=== PATIENT | male | born 1940 | race Caucasian/White ===

== ENCOUNTER 2018-10-18 23:03 | Emergency (ER) | payer BC ==
[2018-10-18 23:26] VITALS: BMI 23.8
--- NOTE | 2018-10-19 00:51 | PDOC ---
History of Present Illness - General Chief Complaint: Chest Pain Stated Complaint: CHEST PAIN Time Seen by Provider: 10/19/18 00:51 - History of Present Illness Initial Comments: 10/19/18 00:51 Mr. Jackson is an 78 yo male w/ pmh of parkinson's who presents for evaluation of 1 day history of chest pain. Patient reports his pain has been on the right sided of the chest and feels "like a needle driving in." Pain started when he was sitting watching tv. Nothing improves or worsens pain. Patient describes the pain as intermittent and elected to come in as the pain had lasted for 24 hours. The patient denies shortness of breath, headache and dizziness. Denies fever, chills, nausea, vomit, diarrhea and constipation. Denies dysuria, frequency, urgency and hematuria. Past History - Past Medical History Allergies/Adverse Reactions: Allergies Allergy/AdvReac Type Severity Reaction Status Date / Time No Known Drug Allergies Allergy Verified 10/18/18 23:27 Home Medications: Ambulatory Orders Carbidopa/Levodopa [Sinemet Cr 25-100 Tablet] 1 each PO QID 08/29/13 Anemia: No Asthma: No Cancer: No Cardiac Disorders: No CVA: No COPD: No CHF: No Dementia: No Diabetes: No GI Disorders: No Disorders: No HTN: Yes Hypercholesterolemia: Yes (DENIES) Liver Disease: No Seizures: No Thyroid Disease: No - Surgical History Abdominal Surgery: No Appendectomy: No Cardiac Surgery: No Cholecystectomy: No Lung Surgery: No Neurologic Surgery: No Orthopedic Surgery: Yes (LEFT ARTHROSCOPY; RT SHOULDER SX ARTHROSCOPY 16 YRS AGO ) - Suicide/Smoking/Psychosocial Hx Smoking History: Unknown if ever smoked Have you smoked in the past 12 months: No Information on smoking cessation initiated: No Hx Alcohol Use: No Drug/Substance Use Hx: No Substance Use Type: None Hx Substance Use Treatment: No Review of Systems - Review of Systems Comments:: 10/19/18 00:51 GENERAL/CONSTITUTIONAL: No fever or chills. No weakness. HEAD, EYES, EARS, NOSE AND THROAT: No change in vision. No ear pain or discharge. No sore throat. CARDIOVASCULAR: +Chest pain as described. No shortness of breath RESPIRATORY: No cough, wheezing, or hemoptysis. GASTROINTESTINAL: No nausea, vomiting, diarrhea or constipation. GENITOURINARY: No dysuria, frequency, or change in urination. MUSCULOSKELETAL: No joint or muscle swelling or pain. No neck or back pain. SKIN: No rash NEUROLOGIC: No headache, vertigo, loss of consciousness, or change in strength/ sensation. ENDOCRINE: No increased thirst. No abnormal weight change HEMATOLOGIC/LYMPHATIC: No anemia, easy bleeding, or history of blood clots. ALLERGIC/IMMUNOLOGIC: No hives or skin allergy. *Physical Exam - Vital Signs Last Vital Signs Temp Pulse Resp BP Pulse Ox 98.0 F 68 16 152/87 100 10/18/18 23:24 10/18/18 23:24 10/18/18 23:24 10/18/18 23:24 10/18/18 23:24 - Physical Exam Comments: 10/19/18 00:51 GENERAL: Awake, alert, and fully oriented, in no acute distress HEAD: No signs of trauma, normocephalic, atraumatic EYES: PERRLA, EOMI, sclera anicteric, conjunctiva clear ENT: Auricles normal inspection, hearing grossly normal, nares patent, oropharynx clear without exudates. Moist mucosa NECK: Normal ROM, supple, no lymphadenopathy, JVD, or masses LUNGS: +Reproducible R sided chest pain. No distress, speaks full sentences, clear to auscultation bilaterally HEART: Regular rate and rhythm, normal S1 and S2, no murmurs, rubs or gallops, peripheral pulses normal and equal bilaterally. ABDOMEN: Soft, nontender, normoactive bowel sounds. No guarding, no rebound. No masses EXTREMITIES: Normal inspection, Normal range of motion, no edema. No clubbing or cyanosis. NEUROLOGICAL: +Rolling pill tremor noted to R hand. Cranial nerves II through XII grossly intact. Normal speech, no focal sensorimotor deficits SKIN: Warm, Dry, normal turgor, no rashes or lesions noted. ED Treatment Course - LABORATORY CBC & Chemistry Diagram: 10/19/18 01:17 10/19/18 01:05 Medical Decision Making - Medical Decision Making 10/19/18 01:36 Mr. Jackson is an 78 yo male w/ pmh as described who presents for evaluation of R sided chest pain concerning for ACS vs. pulmonary process vs. MSK pain. Patient will be evaluated with EKG, CXR, cardiac labs. 10/19/18 01:54 Patient signed out to Dr. Carver for further evaluation. *DC/Admit/Observation/Transfer Diagnosis at time of Disposition: Chest pain Qualifiers: Chest pain type: unspecified Qualified Code(s): R07.9 - Chest pain, unspecified - Referrals Referrals: Carlos Romero MD [Primary Care Provider] - - Patient Instructions - Post Discharge Activity
[2018-10-19 01:33] LABS: BASO % 0.9 % (0-2.0); EOS % 2.5 % (0-4.5); HEMATOCRIT 45.3 % (35.4-49); HEMOGLOBIN 14.8 GM/dL (11.7-16.9); LYMPH % 25.9 % (8-40); MCHC 32.7 g/dl (32.0-35.9); MEAN CELL VOLUME 91.9 fl (80-96); MEAN PLT VOLUME 8.4 fl (7.5-11.1); MONO % 7.9 % (3.8-10.2); NEUT % 62.8 % (42.8-82.8); PLATELET COUNT 182 K/MM3 (134-434); RBC 4.93 M/mm3 (4.00-5.60); RDW 13.4 % (11.9-15.9)
[2018-10-19] MEDS ORDERED: ASPIRIN 81 MG CHEWABLE TABLETS PO ONE (01:33)
[2018-10-19] MEDS ORDERED: ASPIRIN 81 MG CHEWABLE TABLETS ONE (01:59)
--- NOTE | 2018-10-19 02:04 | PDOC ---
Documentation entered by Gloria Olmedo SCRIBE, acting as scribe for La Vinson MD. La Vinson MD: This documentation has been prepared by the Shara meraz Xhesika, SCRIBE, under my direction and personally reviewed by me in its entirety. I confirm that the documentation accurately reflects all work, treatment, procedures, and medical decision making performed by me. Attending Attestation - Resident Resident Name: Claude Joyce - ED Attending Attestation I have performed the following: I have examined & evaluated the patient, The case was reviewed & discussed with the resident, I agree w/resident's findings & plan, Exceptions are as noted - HPI HPI: 10/19/18 01:01 The patient is a 78 year old male with a significant past medical history of parkinsons disease who presents to our ED with one day of R sided chest pain. The patient describes the chest pain as intermittent, reproducible pain that feels "like a needle driving in." The patient states the chest pain began when he was sitting watching TV and lasted 24 hours. The patient denies shortness of breath or dizziness. The patient denies fever, chills, nausea, diarrhea or constipation. The patient denies dysuria, frequency, urgency or hematuria. Allergy: NKDA Surgical History: LEFT ARTHROSCOPY; RT SHOULDER SX ARTHROSCOPY 16 YRS AGO Social History: None reported PCP: Carlos Canales 10/19/18 01:33 - Physicial Exam PE: 10/19/18 01:33 slightly disheveled 78 yo male BIBA for chest pain. head ncat neck supple lungs cta b/l cvs [id number] abdomen flat ,nontender no back pain ext no edema skin warm and dry neuro alert,conversant, moving all extremities 10/19/18 01:33 - Medical Decision Making 10/19/18 01:32 plan 2 trops and d/c if negative
[2018-10-19 02:06] LABS: ALBUMIN 3.8 g/dl (3.4-5.0); ALK PHOS 75 U/L (45-117); ANION GAP 5 MMOL/L (8-16); BILIRUBIN,TOTAL 0.5 mg/dL (0.2-1); BLOOD UREA NITROGEN 16 mg/dL (7-18); CALCIUM 8.8 mg/dL (8.5-10.1); CHLORIDE 104 mmol/L (98-107); CO2 27 mmol/L (21-32); CREATININE 0.7 mg/dL (0.55-1.3); GLUCOSE,RANDOM 78 mg/dL (74-106); POTASSIUM 3.9 mmol/L (3.5-5.1); SGOT/AST 17 U/L (15-37); SGPT/ALT 29 U/L (13-61); SODIUM 136 mmol/L (136-145); TOT PROT 7.3 g/dl (6.4-8.2)
--- NOTE | 2018-10-19 06:18 | PDOC ---
*Physical Exam - Vital Signs Last Vital Signs Temp Pulse Resp BP Pulse Ox 98.0 F 57 L 13 148/121 H 100 10/18/18 23:24 10/19/18 03:31 10/19/18 03:31 10/19/18 03:31 10/19/18 03:31 ED Treatment Course - LABORATORY CBC & Chemistry Diagram: 10/19/18 01:17 10/19/18 01:05 - ADDITIONAL ORDERS Additional order review: Laboratory Results 10/19/18 01:05 Sodium 136 Potassium 3.9 Chloride 104 Carbon Dioxide 27 Anion Gap 5 L BUN 16 Creatinine 0.7 Est GFR (CKD-EPI)AfAm 103.30 Est GFR (CKD-EPI)NonAf 89.13 Random Glucose 78 Calcium 8.8 Total Bilirubin 0.5 AST 17 ALT 29 Alkaline Phosphatase 75 Creatine Kinase 76 Troponin I < 0.02 Total Protein 7.3 Albumin 3.8 10/19/18 01:17 RBC 4.93 MCV 91.9 MCHC 32.7 RDW 13.4 D MPV 8.4 Neutrophils % 62.8 Lymphocytes % 25.9 Monocytes % 7.9 Eosinophils % 2.5 Basophils % 0.9 - Medications Given in the ED: ED Medications Discontinued Medications Generic Name Dose Route Start Last Admin Trade Name Freq PRN Reason Stop Dose Admin Aspirin 324 mg 10/19/18 01:33 10/19/18 02:01 Asa - PO 10/19/18 01:34 324 mg ONCE ONE Administration Medical Decision Making - Medical Decision Making 10/19/18 06:15 Pt s/o from day team 78 yo male presents with right sided CP EKG reported NSR without ST changes and CXR shows no acute pathology Pending labs including trop with plan to DC home with PCP f/u if trops are negative 1st trop WNL, labs unremarkable Pt resting well in the ED without complaints 10/19/18 06:35 Second trop negative Pt safe for DC home *DC/Admit/Observation/Transfer Diagnosis at time of Disposition: Chest pain Qualifiers: Chest pain type: unspecified Qualified Code(s): R07.9 - Chest pain, unspecified - Discharge Dispostion Disposition: HOME Condition at time of disposition: Stable Decision to Admit order: No - Referrals Referrals: Carlos Romero MD [Primary Care Provider] - - Patient Instructions Printed Discharge Instructions: DI for Atypical Chest Pain, DI for Chest Pain Additional Instructions: Please follow up with your primary doctor within the next 48 hours and discuss your chest pain and elevated blood pressures. Please continue taking your home dosed medications as prescribed. Return to the ER for new or concerning symptoms including but not limited to: chest pain, difficulty breathing, weakness, new back pain, high fevers. Thank you - Post Discharge Activity
[2018-10-19 06:35] VITALS: BP 152/86; PULSE 56; TEMP 98.3
--- NOTE | 2018-10-19 12:07 | EKG ---
Test Reason : Blood Pressure : / mmHG Vent. Rate : 064 BPM Atrial Rate : 064 BPM P-R Int : 154 ms QRS Dur : 094 ms QT Int : 408 ms P-R-T Axes : 057 -03 042 degrees QTc Int : 420 ms NORMAL SINUS RHYTHM NORMAL ECG WHEN COMPARED WITH ECG OF 21-APR-2011 07:31, NO SIGNIFICANT CHANGE WAS FOUND Confirmed by MD Dykes Daniel ([id number]) on 10/19/2018 12:07:27 PM Referred By: Confirmed By:Neymar Dykes MD
== END 2018-10-19 07:09 | disposition home or self-care (01) ==
LOC: JER 23:03
DX: R07.9 Chest pain, unspecified (principal); E78.00 Pure hypercholesterolemia, unspecified; I10 Essential (primary) hypertension; G20 Parkinson's disease
CPT/HCPCS: 36415; 71045-TC-FY; 80053; 82550; 84484; 85025; 93005; 93010; 99284-25

== ENCOUNTER 2019-07-25 09:58 | Emergency (ER) | payer BC ==
[2019-07-25 10:13] VITALS: BMI 23.3
--- NOTE | 2019-07-25 10:42 | PDOC ---
History of Present Illness - General Chief Complaint: Injury Stated Complaint: FALL Time Seen by Provider: 07/25/19 10:22 - History of Present Illness Initial Comments: 07/25/19 10:44 79m with pmh of Parkinson's, using wheelchair at baseline presents to the ED after 2 second episode of dizziness and fall on his right side as he was trying to sit in his wheelchair. He denies hitting his head or losing consciousness. He states that the same thing happened to him 2 weeks ago where he felt dizzy and almost fell down from his chair. He describes the lightheadedness as a sensation of motion, "see the lights on the ceiling moving" . Did not eat anything this morning. States that his right ribs hurt. Denies fever, chills, chest pain, sob, abdominal pain, dysuria, constipation or diarrhea. Past History - Past Medical History Allergies/Adverse Reactions: Allergies Allergy/AdvReac Type Severity Reaction Status Date / Time No Known Drug Allergies Allergy Verified 07/25/19 10:00 Home Medications: Ambulatory Orders Carbidopa/Levodopa [Sinemet Cr 25-100 Tablet] 1 each PO QID 08/29/13 Aspirin [ASA -] 325 mg PO DAILY 07/25/19 Cholecalciferol (Vitamin D3) [Vitamin D3] 5,000 unit PO DAILY 07/25/19 Gabapentin 300 mg PO QID 07/25/19 Anemia: No Asthma: No Cancer: No Cardiac Disorders: No CVA: No COPD: No CHF: No Dementia: No Diabetes: No GI Disorders: No Disorders: No HTN: Yes Hypercholesterolemia: Yes (DENIES) Liver Disease: No Seizures: No Thyroid Disease: No - Surgical History Abdominal Surgery: No Appendectomy: No Cardiac Surgery: No Cholecystectomy: No Lung Surgery: No Neurologic Surgery: No Orthopedic Surgery: Yes (LEFT ARTHROSCOPY; RT SHOULDER SX ARTHROSCOPY 16 YRS AGO ) - Psycho Social/Smoking Cessation Hx Smoking History: Never smoked Have you smoked in the past 12 months: No Information on smoking cessation initiated: No Hx Alcohol Use: No Drug/Substance Use Hx: No Substance Use Type: None Hx Substance Use Treatment: No Review of Systems - Review of Systems Able to Perform ROS?: Yes Is the patient limited Bulgarian proficient: No Constitutional: No: Symptoms Reported HEENTM: No: Symptoms Reported Respiratory: Yes: Cough Cardiac (ROS): No: Symptoms Reported ABD/GI: No: Symptoms Reported : No: Symptoms Reported Musculoskeletal: Yes: See HPI Integumentary: No: Symptoms Reported Neurological: Yes: See HPI *Physical Exam - Vital Signs Last Vital Signs Temp Pulse Resp BP Pulse Ox 97.4 F L 64 16 170/79 97 07/25/19 10:09 07/25/19 10:09 07/25/19 10:09 07/25/19 10:09 07/25/19 10:09 - Physical Exam General Appearance: Yes: Disheveled. No: Apparent Distress HEENT: positive: EOMI, JOLANTA, Normal ENT Inspection Respiratory/Chest: positive: Normal Breath Sounds, Crackles. negative: Chest Tender, Respiratory Distress Cardiovascular: positive: Regular Rhythm, Regular Rate, S1, S2 Gastrointestinal/Abdominal: positive: Normal Bowel Sounds, Flat, Soft. negative : Tender Musculoskeletal: positive: Normal Inspection. 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 Patient hypoglycemic, treating with PO sugar. Will obtain labs a,d head CT , r/o new mass/stroke. Chest xray for possible pneumo 07/25/19 13:47 All labs wnl, no fracture on cxr, rib xray and head ct, no intracranial bleed either. OK to DC with follow up. Discharge - Discharge Information Problems reviewed: Yes Clinical Impression/Diagnosis: Dizziness, Fall Condition: Fair Disposition: HOME - Admission No - Follow up/Referral Referrals: ON STAFF,NOT [Primary Care Provider] - Carlos Romero MD [Staff Physician] - - Patient Discharge Instructions Patient Printed Discharge Instructions: Vertigo, DI for Hypoglycemia Additional Instructions: Come back to the emergency department for any new, worsening or concerning symptom. Follow up with Dr. Romero within the next 3 days. - Post Discharge Activity
[2019-07-25 11:31] LABS: BASO % 0.3 % (0-2.0); HEMATOCRIT 44.8 % (35.4-49); LYMPH % 15.8 % (8-40); MCHC 33.6 g/dl (32.0-35.9); MEAN CELL VOLUME 92.4 fl (80-96); MEAN PLT VOLUME 8.2 fl (7.5-11.1); MONO % 6.8 % (3.8-10.2); NEUT % 76.1 % (42.8-82.8); PLATELET COUNT 258 K/MM3 (134-434); RBC 4.84 M/mm3 (4.00-5.60); RDW 13.8 % (11.9-15.9); WHITE BLOOD COUNT 6.4 K/mm3 (4.0-10.0)
[2019-07-25 11:43] LABS: ALBUMIN 3.6 g/dl (3.4-5.0); BILIRUBIN,TOTAL 0.6 mg/dL (0.2-1); BLOOD UREA NITROGEN 18.7 mg/dL (7-18); CALCIUM 8.9 mg/dL (8.5-10.1); CREATININE 0.8 mg/dL (0.55-1.3); POTASSIUM 4.2 mmol/L (3.5-5.1); TOT PROT 7.4 g/dl (6.4-8.2)
--- NOTE | 2019-07-25 11:58 | EKG ---
Test Reason : Blood Pressure : / mmHG Vent. Rate : 058 BPM Atrial Rate : 058 BPM P-R Int : 126 ms QRS Dur : 078 ms QT Int : 432 ms P-R-T Axes : 014 -10 021 degrees QTc Int : 424 ms POOR DATA QUALITY, INTERPRETATION MAY BE ADVERSELY AFFECTED SINUS BRADYCARDIA WITH SINUS ARRHYTHMIA JUNCTIONAL ST DEPRESSION, PROBABLY NORMAL BORDERLINE ECG WHEN COMPARED WITH ECG OF 18-OCT-2018 23:03, NO SIGNIFICANT CHANGE WAS FOUND Confirmed by Dick Bennett ([id number]) on 07/25/2019 11:57:32 AM Referred By: Confirmed By:Dick Bennett
--- NOTE | 2019-07-25 12:18 | PDOC ---
Attending Attestation - Resident Resident Name: Leon Leslie - ED Attending Attestation I have performed the following: I have examined & evaluated the patient, The case was reviewed & discussed with the resident, I agree w/resident's findings & plan, Exceptions are as noted - HPI HPI: 79 yo M history Parkinson's, in wheelchair at baseline, presents after episode of dizziness today. He described it as the room spinning as he was attempting to get into his wheelchair. He states he fell and struck the R side of his chest as he fell. Denies SOB, leg swelling, weakness, numbness. Dizziness was self-limited. - Physicial Exam PE: GENERAL: Awake, alert, and fully oriented, in no acute distress HEAD: No signs of trauma EYES: PERRLA, EOMI, sclera anicteric, conjunctiva clear ENT: Auricles normal inspection, hearing grossly normal, nares patent, oropharynx clear without exudates. Moist mucosa NECK: Normal ROM, supple, no lymphadenopathy, JVD, or masses LUNGS: Breath sounds equal, clear to auscultation bilaterally. No wheezes, and no crackles HEART: Regular rate and rhythm, normal S1 and S2, no murmurs, rubs or gallops ABDOMEN: Soft, nontender, normoactive bowel sounds. No guarding, no rebound. No masses EXTREMITIES: Normal range of motion, no edema. No clubbing or cyanosis. No cords, erythema, or tenderness. +Resting tremors to hands B/L. NEUROLOGICAL: Cranial nerves II through XII grossly intact. Normal speech, normal gait. Motor and sensation intact. +Cogwheel rigidity. SKIN: Warm, dry, normal turgor, no rashes or lesions noted. - Medical Decision Making Pt presents s/p fall, struck R chest. Will obtain CXR, Rib XR to r/o fracture, ptx. If all wnl, will DC home.
[2019-07-25 13:15] LABS: PH,URINE 6.5 (5.0-8.0); URINE APPEARANCE CLEAR; URINE BILIRUBIN NEGATIVE (NEGATIVE); URINE COLOR YELLOW; URINE GLUCOSE (UA) NEGATIVE (NEGATIVE); URINE KETONE NEGATIVE (NEGATIVE); URINE LEUK ESTERASE NEGATIVE (NEGATIVE); URINE NITRITE NEGATIVE (NEGATIVE); URINE PROTEIN NEGATIVE (NEGATIVE)
[2019-07-25 14:04] VITALS: BP 141/77; PULSE 59; TEMP 97.5
== END 2019-07-25 14:55 | disposition home or self-care (01) ==
LOC: JER 09:58
DX: R42 Dizziness and giddiness (principal); E16.1 Other hypoglycemia; G20 Parkinson's disease
CPT/HCPCS: 36415; 70450-TC; 71045-TC-FY; 71101-TC-RT-FY; 80053; 81003; 82962; 84484; 85025; 87086; 93005; 93010; 99285-25

== ENCOUNTER 2021-11-29 12:26 | Inpatient (IN) | payer BC, OTHER ==
[2021-11-29] MEDS ORDERED: morphine CARPU-JECT 4 MG/1 ML DISP.SYRIN IVPUSH ONE (13:43)
[2021-11-29 14:02] LABS: BASO % 0.4 % (0-2.0); EOS % 4.5 % (0-4.5); HEMATOCRIT 37.3 % (35.4-49); HEMOGLOBIN 12.4 GM/dL (11.7-16.9); LYMPH % 26.8 % (8-40); MCH 28.8 pg (25.7-33.7); MCHC 33.1 g/dl (32.0-35.9); MEAN PLT VOLUME 7.4 fl (7.5-11.1); MONO % 6.6 % (3.8-10.2); NEUT % 61.7 % (42.8-82.8); PLATELET COUNT 357 10^3/uL (134-434); RBC 4.29 M/mm3 (4.00-5.60); RDW 15.2 % (11.9-15.9); WHITE BLOOD COUNT 7.2 K/mm3 (4.0-10.0)
[2021-11-29] MEDS ORDERED: morphine SULFATE 4 MG/ML VIAL ONE (14:02)
[2021-11-29 14:09] LABS: INR 1.32 (0.83-1.09); PROTHROMBIN TIME (PATIENT) 15.2 SEC (9.7-13.0)
[2021-11-29 14:12] LABS: ACTIVATED PTT 43.5 SECONDS (25.2-36.5)
[2021-11-29 14:28] LABS: ALBUMIN 2.8 g/dl (3.4-5.0); BLOOD UREA NITROGEN 20.1 mg/dL (7-18); CALCIUM 8.4 mg/dL (8.5-10.1)
[2021-11-29 14:30] LABS: CREATININE 0.6 mg/dL (0.55-1.3)
[2021-11-29 14:32] LABS: BILIRUBIN,TOTAL 0.6 mg/dL (0.2-1); TOT PROT 6.1 g/dl (6.4-8.2)
[2021-11-29 16:38] LABS: URINE APPEARANCE CLEAR; URINE BILIRUBIN NEGATIVE (NEGATIVE); URINE COLOR YELLOW; URINE GLUCOSE (UA) NEGATIVE (NEGATIVE); URINE KETONE NEGATIVE (NEGATIVE); URINE LEUK ESTERASE NEGATIVE (NEGATIVE); URINE NITRITE NEGATIVE (NEGATIVE); URINE PROTEIN NEGATIVE (NEGATIVE)
[2021-11-29] MEDS ORDERED: ACETAMINOPHEN INJECTION 100 ML IVPB ONE (21:20)
[2021-11-29] MEDS: ACETAMINOPHEN 1000 MG/100 ML BAG IVPB PRN (21:24)
[2021-11-29] MEDS ORDERED: HEPARIN NA (PORCINE) 5,000 UNITS/ML 1ML VIAL IVPUSH ONE (22:24)
[2021-11-29] MEDS ORDERED: HEPARIN NA (PORCINE) 5,000 UNITS/ML 1ML VIAL IVPUSH PRN (22:24)
[2021-11-29] MEDS ORDERED: MIRTAZAPINE 15 MG TABLET (FP) ONE (22:35)
[2021-11-29] MEDS ORDERED: HEPARIN INFUSION - 25,000 UNITS/500 ML INFUS.BAG IVPB ONE (22:39)
[2021-11-29] MEDS ORDERED: HEPARIN NA (PORCINE) 5,000 UNITS/ML 1ML VIAL ONE (22:39)
[2021-11-29] MEDS: MIRTAZAPINE 15 MG TABLET (FP) PO SCH (22:53)
[2021-11-29] MEDS: HEPARIN INFUSION - 25,000 UNITS/500 ML INFUS.BAG IVPB SCH (22:55)
[2021-11-30] MEDS ORDERED: CARBIDOPA/LEVODOPA 25/250 TABLET (FP) ONE (05:33)
[2021-11-30] MEDS: CARBIDOPA/LEVODOPA 25/250 TABLET (FP) PO SCH ×3 (05:59→22:23)
[2021-11-30 07:41] LABS: BASO % 0.8 % (0-2.0); EOS % 3.7 % (0-4.5); HEMATOCRIT 39.2 % (35.4-49); HEMOGLOBIN 13.1 GM/dL (11.7-16.9); LYMPH % 23.4 % (8-40); MCH 28.9 pg (25.7-33.7); MCHC 33.3 g/dl (32.0-35.9); MEAN CELL VOLUME 86.7 fl (80-96); MEAN PLT VOLUME 7.5 fl (7.5-11.1); MONO % 6.7 % (3.8-10.2); NEUT % 65.4 % (42.8-82.8); PLATELET COUNT 334 10^3/uL (134-434); RBC 4.53 M/mm3 (4.00-5.60); RDW 14.7 % (11.9-15.9); WHITE BLOOD COUNT 5.9 K/mm3 (4.0-10.0)
[2021-11-30 08:08] LABS: INR 1.15 (0.83-1.09); PROTHROMBIN TIME (PATIENT) 13.2 SEC (9.7-13.0)
[2021-11-30 08:10] LABS: BLOOD UREA NITROGEN 14.8 mg/dL (7-18); CALCIUM 8.7 mg/dL (8.5-10.1); CREATININE 0.5 mg/dL (0.55-1.3); MAGNESIUM 2.2 mg/dL (1.8-2.4)
[2021-11-30 08:11] LABS: ACTIVATED PTT 89.8 SECONDS (25.2-36.5)
[2021-11-30] MEDS ORDERED: ACETAMINOPHEN INJECTION 100 ML IVPB ONE (08:39)
[2021-11-30] MEDS: ACETAMINOPHEN 1000 MG/100 ML BAG IVPB PRN (08:47)
[2021-11-30] MEDS ORDERED: amLODIPine BESYLATE 10 MG TABLET (FP) ONE (10:29)
[2021-11-30] MEDS ORDERED: CITALOPRAM HYDROBROMIDE 10 MG TABLET ONE (10:30)
[2021-11-30] MEDS: amLODIPine BESYLATE 10 MG TABLET (FP) PO SCH (12:00)
[2021-11-30] MEDS: CITALOPRAM HYDROBROMIDE 10 MG TABLET PO SCH (12:00)
[2021-11-30] MEDS ORDERED: CARBIDOPA/LEVODOPA 25/100 TABLET (FP) ONE (16:03)
[2021-11-30] MEDS: MIRTAZAPINE 15 MG TABLET (FP) PO SCH (22:22)
[2021-12-01] MEDS: HEPARIN INFUSION - 25,000 UNITS/500 ML INFUS.BAG IVPB SCH ×2 (01:10→08:42)
[2021-12-01] MEDS: HEPARIN NA (PORCINE) 5,000 UNITS/ML 1ML VIAL IVPUSH PRN (02:31)
[2021-12-01] MEDS: ACETAMINOPHEN 325 MG TABLET (FP) PO PRN ×2 (02:40→11:10)
[2021-12-01] MEDS: CARBIDOPA/LEVODOPA 25/250 TABLET (FP) PO SCH ×3 (06:50→21:53)
[2021-12-01] MEDS: CITALOPRAM HYDROBROMIDE 10 MG TABLET PO SCH (09:16)
[2021-12-01] MEDS: amLODIPine BESYLATE 10 MG TABLET (FP) PO SCH (09:16)
[2021-12-01 11:26] LABS: HEMATOCRIT 36.6 % (35.4-49); HEMOGLOBIN 12.3 GM/dL (11.7-16.9); MCH 29.1 pg (25.7-33.7); MCHC 33.6 g/dl (32.0-35.9); MEAN CELL VOLUME 86.5 fl (80-96); MEAN PLT VOLUME 7.6 fl (7.5-11.1); PLATELET COUNT 351 10^3/uL (134-434); RBC 4.23 M/mm3 (4.00-5.60); RDW 14.8 % (11.9-15.9); WHITE BLOOD COUNT 7.3 K/mm3 (4.0-10.0)
[2021-12-01] MEDS: D5-1/2NS+20 MEQ KCL - 20 MEQ/1,000 ML INFUS.BAG IV SCH (12:18)
[2021-12-01] MEDS: MIRTAZAPINE 15 MG TABLET (FP) PO SCH (21:53)
[2021-12-02] MEDS: CARBIDOPA/LEVODOPA 25/250 TABLET (FP) PO SCH ×3 (06:28→21:02)
[2021-12-02] MEDS: amLODIPine BESYLATE 10 MG TABLET (FP) PO SCH (09:51)
[2021-12-02] MEDS: CITALOPRAM HYDROBROMIDE 10 MG TABLET PO SCH (09:51)
[2021-12-02 12:06] LABS: HEMATOCRIT 35.5 % (35.4-49); HEMOGLOBIN 11.9 GM/dL (11.7-16.9); MCHC 33.5 g/dl (32.0-35.9); MEAN CELL VOLUME 86.6 fl (80-96); MEAN PLT VOLUME 7.8 fl (7.5-11.1); PLATELET COUNT 312 10^3/uL (134-434); RDW 15.1 % (11.9-15.9); WHITE BLOOD COUNT 5.6 K/mm3 (4.0-10.0)
[2021-12-02 12:29] LABS: CALCIUM 8.6 mg/dL (8.5-10.1)
[2021-12-02 12:30] LABS: ALBUMIN 2.7 g/dl (3.4-5.0); BLOOD UREA NITROGEN 11.8 mg/dL (7-18)
[2021-12-02 12:33] LABS: CREATININE 0.5 mg/dL (0.55-1.3)
[2021-12-02 12:34] LABS: BILIRUBIN,TOTAL 0.8 mg/dL (0.2-1)
[2021-12-02 12:35] LABS: TOT PROT 5.9 g/dl (6.4-8.2)
[2021-12-02] MEDS: D5-1/2NS+20 MEQ KCL - 20 MEQ/1,000 ML INFUS.BAG IV SCH (13:53)
[2021-12-02] MEDS: HEPARIN INFUSION - 25,000 UNITS/500 ML INFUS.BAG IVPB SCH (14:50)
[2021-12-02] MEDS ORDERED: amLODIPine BESYLATE 5 MG TABLET (FP) PO SCH (17:54)
[2021-12-02] MEDS: ACETAMINOPHEN 325 MG TABLET (FP) PO PRN (21:01)
[2021-12-02] MEDS: MIRTAZAPINE 15 MG TABLET (FP) PO SCH (21:02)
[2021-12-03] MEDS: HEPARIN INFUSION - 25,000 UNITS/500 ML INFUS.BAG IVPB SCH
[2021-12-03] MEDS: CARBIDOPA/LEVODOPA 25/250 TABLET (FP) PO SCH ×3 (06:31→21:55)
[2021-12-03] MEDS ORDERED: INSULIN (NOVOLOG) ASPART 100 UNITS/ML 10ML VIAL ONE (08:05)
[2021-12-03] MEDS: CITALOPRAM HYDROBROMIDE 10 MG TABLET PO SCH (10:11)
[2021-12-03 10:37] LABS: HEMATOCRIT 34.5 % (35.4-49); HEMOGLOBIN 11.6 GM/dL (11.7-16.9); MCHC 33.7 g/dl (32.0-35.9); MEAN CELL VOLUME 86.2 fl (80-96); MEAN PLT VOLUME 7.7 fl (7.5-11.1); PLATELET COUNT 285 10^3/uL (134-434); RDW 14.8 % (11.9-15.9); WHITE BLOOD COUNT 5.9 K/mm3 (4.0-10.0)
[2021-12-03 10:48] LABS: INR 1.13 (0.83-1.09)
[2021-12-03 11:08] LABS: CALCIUM 8.1 mg/dL (8.5-10.1)
[2021-12-03 11:09] LABS: ALBUMIN 2.5 g/dl (3.4-5.0)
[2021-12-03 11:12] LABS: CREATININE 0.5 mg/dL (0.55-1.3)
[2021-12-03 11:13] LABS: BILIRUBIN,TOTAL 0.8 mg/dL (0.2-1); TOT PROT 5.5 g/dl (6.4-8.2)
[2021-12-03] MEDS: HEPARIN NA (PORCINE) 5,000 UNITS/ML 1ML VIAL IVPUSH PRN (11:19)
[2021-12-03] MEDS ORDERED: ASCORBIC ACID 250 MG TABLET (FP) PO SCH (13:00)
[2021-12-03] MEDS ORDERED: MULTIVITAMINS (DAILY MVI) TABLET (FP) PO SCH (13:00)
[2021-12-03] MEDS: MIRTAZAPINE 15 MG TABLET (FP) PO SCH (21:55)
[2021-12-03] MEDS ORDERED: hydrALAZINE HCL 10 MG TABLET PO SCH (22:00)
[2021-12-04] MEDS: CARBIDOPA/LEVODOPA 25/250 TABLET (FP) PO SCH ×3 (06:22→21:56)
[2021-12-04] MEDS ORDERED: ceFAZolin SODIUM 1 GM VIAL ONE ×3 (07:27→18:32)
[2021-12-04] MEDS ORDERED: LIDOCAINE HCL 1%, 10 MG/ML (20ML VIAL) ONE (07:27)
[2021-12-04] MEDS ORDERED: HEPARIN NA (PORCINE) 5,000 UNITS/ML 1ML VIAL ONE (07:27)
[2021-12-04] MEDS ORDERED: MIDAZOLAM HCL 2 MG/2 ML SINGLE DOSE VIAL ONE ×2 (07:29→13:27)
[2021-12-04] MEDS ORDERED: ceFAZolin SODIUM 1 GM VIAL IVPB ONE ×2 (08:15→13:30)
[2021-12-04] MEDS ORDERED: LIDOCAINE HCL 1%, 10 MG/ML (20ML VIAL) INF ONE (08:20)
[2021-12-04] MEDS ORDERED: PROMETHAZINE HCL 25 MG/1 ML VIAL IVPUSH PRN ×2 (08:49→15:28)
[2021-12-04] MEDS ORDERED: ONDANSETRON 4 MG/2 ML VIAL IVPUSH PRN ×2 (08:49→15:28)
[2021-12-04] MEDS ORDERED: LACTATED RINGERS SOLUTION 1,000 ML IV SCH ×2 (09:00→15:30)
[2021-12-04] MEDS: CITALOPRAM HYDROBROMIDE 10 MG TABLET PO SCH (09:44)
[2021-12-04] MEDS: ASCORBIC ACID 250 MG TABLET (FP) PO SCH (09:44)
[2021-12-04] MEDS: MULTIVITAMINS (DAILY MVI) TABLET (FP) PO SCH (09:44)
[2021-12-04] MEDS: hydrALAZINE HCL 10 MG TABLET PO SCH ×2 (09:46→21:54)
[2021-12-04 13:08] LABS: INR 1.02 (0.83-1.09); PROTHROMBIN TIME (PATIENT) 11.7 SEC (9.7-13.0)
[2021-12-04 13:11] LABS: ACTIVATED PTT 32.6 SECONDS (25.2-36.5)
[2021-12-04] MEDS ORDERED: BUPIVACAINE HCL/PF 0.75% 10 ML VIAL ONE ×2 (13:23)
[2021-12-04] MEDS ORDERED: ePHEDrine SULFATE 50 MG/1 ML AMPULE ONE (14:18)
[2021-12-04] MEDS ORDERED: VANCOMYCIN 1,000 MG VIAL (RESTRICTED TO ID ONLY) ONE (14:39)
[2021-12-04] MEDS ORDERED: HYDROmorphone HCL CARPU-JECT 2 MG/1 ML DISP.SYRIN IVPUSH PRN ×2 (15:28)
[2021-12-04] MEDS ORDERED: FENTANYL CITRATE/PF 50 MCG/ML VIAL ONE ×2 (15:59→16:25)
[2021-12-04] MEDS ORDERED: HYDROmorphone HCl 2 MG/ML VIAL ONE (16:24)
[2021-12-04] MEDS ORDERED: DEXTROSE 5%-WATER - 50 ML IVPB ONE (18:32)
[2021-12-04] MEDS: CEFAZOLIN 1 GM in DEXTROSE 5%-WATER - 50 ML IVPB SCH (18:34)
[2021-12-04] MEDS: MIRTAZAPINE 15 MG TABLET (FP) PO SCH (21:54)
[2021-12-04] MEDS: LACTATED RINGERS SOLUTION 1,000 ML IV SCH (21:55)
[2021-12-04] MEDS: oxyCODONE HCL 5 MG TABLET PO PRN (21:59)
[2021-12-05] MEDS ORDERED: ceFAZolin SODIUM 1 GM VIAL ONE ×2 (01:59→09:26)
[2021-12-05] MEDS ORDERED: DEXTROSE 5%-WATER - 50 ML IVPB ONE ×2 (01:59→09:27)
[2021-12-05] MEDS: CEFAZOLIN 1 GM in DEXTROSE 5%-WATER - 50 ML IVPB SCH ×2 (02:03→09:29)
[2021-12-05] MEDS: oxyCODONE HCL 5 MG TABLET PO PRN ×4 (05:39→21:56)
[2021-12-05] MEDS: CARBIDOPA/LEVODOPA 25/250 TABLET (FP) PO SCH ×3 (05:40→21:56)
[2021-12-05] MEDS: LACTATED RINGERS SOLUTION 1,000 ML IV SCH ×2 (05:41→21:55)
[2021-12-05] MEDS: CITALOPRAM HYDROBROMIDE 10 MG TABLET PO SCH (09:29)
[2021-12-05] MEDS: MULTIVITAMINS (DAILY MVI) TABLET (FP) PO SCH (09:29)
[2021-12-05] MEDS: hydrALAZINE HCL 10 MG TABLET PO SCH ×2 (09:29→21:56)
[2021-12-05 09:55] LABS: HEMOGLOBIN 10.1 GM/dL (11.7-16.9); MCH 29.1 pg (25.7-33.7); MCHC 33.7 g/dl (32.0-35.9); MEAN CELL VOLUME 86.3 fl (80-96); MEAN PLT VOLUME 8.2 fl (7.5-11.1); PLATELET COUNT 331 10^3/uL (134-434); RBC 3.47 M/mm3 (4.00-5.60); RDW 15.1 % (11.9-15.9); WHITE BLOOD COUNT 5.8 K/mm3 (4.0-10.0)
[2021-12-05] MEDS: ACETAMINOPHEN 325 MG TABLET (FP) PO PRN (10:18)
[2021-12-05] MEDS: ASCORBIC ACID 250 MG TABLET (FP) PO SCH (12:17)
[2021-12-05] MEDS: MIRTAZAPINE 15 MG TABLET (FP) PO SCH (21:56)
[2021-12-06] MEDS: CARBIDOPA/LEVODOPA 25/250 TABLET (FP) PO SCH ×3 (05:10→21:26)
[2021-12-06] MEDS: oxyCODONE HCL 5 MG TABLET PO PRN ×3 (05:10→21:21)
[2021-12-06] MEDS: ASCORBIC ACID 250 MG TABLET (FP) PO SCH (10:14)
[2021-12-06] MEDS: MULTIVITAMINS (DAILY MVI) TABLET (FP) PO SCH (10:14)
[2021-12-06] MEDS: CITALOPRAM HYDROBROMIDE 10 MG TABLET PO SCH (10:14)
[2021-12-06] MEDS: hydrALAZINE HCL 10 MG TABLET PO SCH ×2 (10:14→21:21)
[2021-12-06] MEDS: ACETAMINOPHEN 325 MG TABLET (FP) PO PRN (10:21)
[2021-12-06] MEDS: MIRTAZAPINE 15 MG TABLET (FP) PO SCH (21:22)
[2021-12-07] MEDS: CARBIDOPA/LEVODOPA 25/250 TABLET (FP) PO SCH ×3 (06:12→21:17)
[2021-12-07] MEDS: ACETAMINOPHEN 325 MG TABLET (FP) PO PRN (06:12)
[2021-12-07] MEDS: hydrALAZINE HCL 10 MG TABLET PO SCH ×2 (10:05→21:17)
[2021-12-07] MEDS: MULTIVITAMINS (DAILY MVI) TABLET (FP) PO SCH (10:05)
[2021-12-07] MEDS: CITALOPRAM HYDROBROMIDE 10 MG TABLET PO SCH (10:05)
[2021-12-07] MEDS: oxyCODONE HCL 5 MG TABLET PO PRN ×2 (10:06→15:04)
[2021-12-07] MEDS: ASCORBIC ACID 250 MG TABLET (FP) PO SCH (10:06)
[2021-12-07] MEDS: ENOXAPARIN NA (PORCINE) 40 MG/0.4 ML DISP.SYRIN SQ SCH (10:47)
[2021-12-07 12:03] LABS: HEMATOCRIT 25.3 % (35.4-49); HEMOGLOBIN 8.4 GM/dL (11.7-16.9); MCH 28.9 pg (25.7-33.7); MCHC 33.2 g/dl (32.0-35.9); MEAN CELL VOLUME 87.2 fl (80-96); MEAN PLT VOLUME 7.3 fl (7.5-11.1); PLATELET COUNT 320 10^3/uL (134-434); RDW 15.5 % (11.9-15.9); WHITE BLOOD COUNT 7.6 K/mm3 (4.0-10.0)
[2021-12-07 15:21] VITALS: BMI 22.8
[2021-12-07] MEDS: MIRTAZAPINE 15 MG TABLET (FP) PO SCH (21:03)
[2021-12-08] MEDS ORDERED: oxyCODONE HCL 5 MG TABLET PO PRN (04:34)
[2021-12-08] MEDS: CARBIDOPA/LEVODOPA 25/250 TABLET (FP) PO SCH ×3 (05:20→21:10)
[2021-12-08] MEDS: ZINC SULFATE 220 MG CAPSULE (FP) PO SCH (09:05)
[2021-12-08] MEDS: CITALOPRAM HYDROBROMIDE 10 MG TABLET PO SCH (09:05)
[2021-12-08] MEDS: ENOXAPARIN NA (PORCINE) 40 MG/0.4 ML DISP.SYRIN SQ SCH (09:05)
[2021-12-08] MEDS: hydrALAZINE HCL 10 MG TABLET PO SCH ×2 (09:05→21:09)
[2021-12-08] MEDS: AMINO ACIDS/PROTEIN HYDROLYS 30 ML LIQUID.PKT PO SCH (09:05)
[2021-12-08] MEDS: MULTIVITAMINS (DAILY MVI) TABLET (FP) PO SCH (09:05)
[2021-12-08] MEDS: ASCORBIC ACID 250 MG TABLET (FP) PO SCH (09:06)
[2021-12-08] MEDS: MIRTAZAPINE 15 MG TABLET (FP) PO SCH (21:08)
[2021-12-08] MEDS: oxyCODONE HCL 5 MG TABLET PO PRN (21:09)
[2021-12-09] MEDS: CARBIDOPA/LEVODOPA 25/250 TABLET (FP) PO SCH ×3 (05:52→21:07)
[2021-12-09] MEDS ORDERED: IRON SUCROSE INJECTION 300 MG in SODIUM CHLORIDE 235 ML IVPB ONE (08:24)
[2021-12-09] MEDS: AMINO ACIDS/PROTEIN HYDROLYS 30 ML LIQUID.PKT PO SCH (09:14)
[2021-12-09] MEDS: ENOXAPARIN NA (PORCINE) 40 MG/0.4 ML DISP.SYRIN SQ SCH (09:30)
[2021-12-09] MEDS: ZINC SULFATE 220 MG CAPSULE (FP) PO SCH (09:31)
[2021-12-09] MEDS: CITALOPRAM HYDROBROMIDE 10 MG TABLET PO SCH (09:31)
[2021-12-09] MEDS: hydrALAZINE HCL 10 MG TABLET PO SCH ×2 (09:31→21:07)
[2021-12-09] MEDS: MULTIVITAMINS (DAILY MVI) TABLET (FP) PO SCH (09:31)
[2021-12-09] MEDS: ASCORBIC ACID 250 MG TABLET (FP) PO SCH (09:37)
[2021-12-09 12:55] LABS: BASO % 0.5 % (0-2.0); HEMATOCRIT 24.5 % (35.4-49); HEMOGLOBIN 8.2 GM/dL (11.7-16.9); LYMPH % 16.6 % (8-40); MCH 29.4 pg (25.7-33.7); MCHC 33.5 g/dl (32.0-35.9); MEAN CELL VOLUME 87.8 fl (80-96); MEAN PLT VOLUME 7.8 fl (7.5-11.1); NEUT % 69.9 % (42.8-82.8); PLATELET COUNT 344 10^3/uL (134-434); RBC 2.79 M/mm3 (4.00-5.60); RDW 15.2 % (11.9-15.9); WHITE BLOOD COUNT 6.3 K/mm3 (4.0-10.0)
[2021-12-09 13:12] LABS: CALCIUM 7.8 mg/dL (8.5-10.1)
[2021-12-09 13:13] LABS: ALBUMIN 2.3 g/dl (3.4-5.0); BLOOD UREA NITROGEN 18.6 mg/dL (7-18)
[2021-12-09 13:17] LABS: CREATININE 0.5 mg/dL (0.55-1.3)
[2021-12-09 13:18] LABS: BILIRUBIN,TOTAL 0.6 mg/dL (0.2-1); TOT PROT 5.3 g/dl (6.4-8.2)
[2021-12-09] MEDS: MIRTAZAPINE 15 MG TABLET (FP) PO SCH (21:07)
[2021-12-09] MEDS: oxyCODONE HCL 5 MG TABLET PO PRN (21:31)
[2021-12-10 04:45] VITALS: BP 108/62; PULSE 60; TEMP 98
[2021-12-10] MEDS: CARBIDOPA/LEVODOPA 25/250 TABLET (FP) PO SCH ×2 (05:59→14:33)
[2021-12-10] MEDS: MULTIVITAMINS (DAILY MVI) TABLET (FP) PO SCH (09:20)
[2021-12-10] MEDS: ZINC SULFATE 220 MG CAPSULE (FP) PO SCH (09:20)
[2021-12-10] MEDS: hydrALAZINE HCL 10 MG TABLET PO SCH (09:20)
[2021-12-10] MEDS: AMINO ACIDS/PROTEIN HYDROLYS 30 ML LIQUID.PKT PO SCH (09:20)
[2021-12-10] MEDS: ENOXAPARIN NA (PORCINE) 40 MG/0.4 ML DISP.SYRIN SQ SCH (09:20)
[2021-12-10] MEDS: CITALOPRAM HYDROBROMIDE 10 MG TABLET PO SCH (09:20)
[2021-12-10] MEDS: ASCORBIC ACID 250 MG TABLET (FP) PO SCH (09:21)
[2021-12-10] MEDS ORDERED: FERROUS SO4 325 MG TABLET (FP) PO SCH (10:00)
[2021-12-10] MEDS: oxyCODONE HCL 5 MG TABLET PO PRN (10:22)
== END 2021-12-10 16:18 | DRG 522 ==
LOC: JER 12:26 → JERBED 15:21 → J6S 11-30 18:39
PROVIDERS: ADMIT Hospitalist; ATTEND Family Medicine
PROC: 06H03DZ Insertion of Intraluminal Device into Inferior Vena Cava, Percutaneous Approach (ICD-10-PCS; 2021-12-04)
PROC: B50CYZZ Plain Radiography of Left Lower Extremity Veins using Other Contrast (ICD-10-PCS; 2021-12-04)
PROC: 0SRS0J9 Replacement of Left Hip Joint, Femoral Surface with Synthetic Substitute, Cemented, Open Approach (ICD-10-PCS; principal; 2021-12-04 07:45)
DX: S72.142A Displaced intertrochanteric fracture of left femur, initial encounter for closed fracture (principal); I82.432 Acute embolism and thrombosis of left popliteal vein; G20 Parkinson's disease; I10 Essential (primary) hypertension; E86.0 Dehydration; E78.5 Hyperlipidemia, unspecified; J44.9 Chronic obstructive pulmonary disease, unspecified; F32.A Depression, unspecified; F03.90 Unspecified dementia, unspecified severity, without behavioral disturbance, psychotic disturbance, mood disturbance, and anxiety; W18.39XA Other fall on same level, initial encounter; Y92.098 Other place in other non-institutional residence as the place of occurrence of the external cause; Z91.81 History of falling
CPT/HCPCS: 36415; 70450-TC; 71045-TC-FY; 72125-TC; 72128-TC; 72131-TC; 72170-TC-FY; 73502-TC-LT-FY; 73610-TC-LT-FY; 73630-TC-LT; 76000-TC-FY; 80048; 80053; 81003; 83735; 84100; 85025; 85027; 85610; 85730; 86850; 86900; 86901; 87086; 88305-TC; 88311-TC; 93005; 93010; 93970-TC; 94760; 97162-GP; 99285-25; C9803-CS; J1644; J1756; U0003; U0005

== ENCOUNTER 2022-04-23 20:07 | Emergency (ER) | payer OTHER ==
[2022-04-23 20:23] VITALS: RESP 18; BMI 22.0
[2022-04-24 01:06] VITALS: BP 167/74; TEMP 97.7
[2022-04-24 01:16] VITALS: PULSE 73
== END 2022-04-24 01:18 ==
LOC: JER 20:07
DX: T84.021A Dislocation of internal left hip prosthesis, initial encounter (principal)
CPT/HCPCS: 72170-TC-FY; 73502-TC-LT-FY; 73552-TC-LT-FY; 73562-TC-LT-FY; 93971-TC; 99285-25

== ENCOUNTER 2024-01-07 18:18 | Inpatient (IN) | payer OTHER ==
[2024-01-07 20:39] LABS: VENOUS BASE EXCESS -6.4 mmol/L (-2-2); VENOUS O2 SATURATION 31.7 % (70-80); VENOUS PCO2 44.4 mmHg (38-52); VENOUS PH 7.273 (7.310-7.410)
[2024-01-07 20:40] LABS: HEMATOCRIT 23.2 % (35.4-49); HEMOGLOBIN 7.5 GM/dL (11.7-16.9); MCH 29.8 pg (25.7-33.7); MCHC 32.1 g/dl (32.0-35.9); MEAN CELL VOLUME 92.8 fl (80-96); PLATELET COUNT 621 10^3/uL (134-434); RDW 13.4 % (11.9-15.9)
[2024-01-07 20:47] LABS: WHITE BLOOD COUNT 45.7 K/mm3 (4.0-10.0)
[2024-01-07 20:51] LABS: INR 0.91 (0.83-1.09); PROTHROMBIN TIME (PATIENT) 10.5 SEC (9.7-13.0)
[2024-01-07 20:54] LABS: ACTIVATED PTT 23.6 SECONDS (25.2-36.5)
[2024-01-07 21:13] LABS: POTASSIUM 4.5 mmol/L (3.5-5.1)
[2024-01-07 21:18] LABS: ALBUMIN 2.5 g/dl (3.4-5.0); BLOOD UREA NITROGEN 24.7 mg/dL (7-18); CALCIUM 8.3 mg/dL (8.5-10.1)
[2024-01-07 21:21] LABS: CREATININE 1.2 mg/dL (0.55-1.3)
[2024-01-07 21:23] LABS: BILIRUBIN,TOTAL 0.4 mg/dL (0.2-1); TOT PROT 5.3 g/dl (6.4-8.2)
[2024-01-07 21:32] LABS: ANISOCYTOSIS 0; MACROCYTOSIS 0; OVALOCYTE 1+
[2024-01-07 21:41] LABS: LACTIC ACID 4.9 mmol/L (0.4-2.0)
[2024-01-07] MEDS ORDERED: PIPERACILLIN/TAZOB 4.5 GM 4.5 GM/100 ML BAG IVPB ONE (21:49)
[2024-01-07] MEDS: PIPERACILLIN/TAZOB 4.5 GM 4.5 GM in DEXTROSE 5%-WATER 100 ML IVPB ONE (21:50)
[2024-01-07] MEDS ORDERED: VANCOMYCIN 1 GRAM (PRE-DOCKED) 1,000 MG/250 ML BAG IVPB ONE (22:08)
[2024-01-07] MEDS: SODIUM CHLORIDE 1,000 ML IV SCH (22:24)
[2024-01-07] MEDS: VANCOMYCIN 1,000 MG in DEXTROSE 5%-WATER - 250 ML IVPB ONE (22:24)
[2024-01-07 23:11] LABS: LACTIC ACID 2.8 mmol/L (0.4-2.0)
[2024-01-08 01:18] LABS: EPI CELLS 21 /uL (0-25.1); HYALINE CASTS 2 /uL (0-3.1); PH,URINE 5.5 (5.0-8.0); URINE APPEARANCE CLEAR; URINE BACTERIA 42 /uL (0-1359); URINE BILIRUBIN NEGATIVE (NEGATIVE); URINE COLOR YELLOW; URINE GLUCOSE (UA) NEGATIVE (NEGATIVE); URINE KETONE NEGATIVE (NEGATIVE); URINE LEUK ESTERASE NEGATIVE (NEGATIVE); URINE NITRITE NEGATIVE (NEGATIVE); URINE PROTEIN 1+ (NEGATIVE)
[2024-01-08 02:30] VITALS: BMI 19.7
[2024-01-08 06:44] LABS: URINE RBC 29.8 /uL (0-23.9); URINE WBC 55.5 /uL (0-25.8)
[2024-01-08] MEDS: PIPERACILLIN/TAZOB 2.25 GM 2.25 GM in DEXTROSE 5%-WATER - 50 ML IVPB SCH ×2 (06:46→17:54)
[2024-01-08] MEDS: CARBIDOPA/LEVODOPA 25/250 TABLET (FP) PO SCH (06:46)
[2024-01-08 08:23] LABS: HEMATOCRIT 21.6 % (35.4-49); HEMOGLOBIN 7.2 GM/dL (11.7-16.9); MCHC 33.3 g/dl (32.0-35.9); MEAN CELL VOLUME 93.1 fl (80-96); MEAN PLT VOLUME 7.1 fl (7.5-11.1); PLATELET COUNT 571 10^3/uL (134-434); RBC 2.32 M/mm3 (4.00-5.60); RDW 13.3 % (11.9-15.9)
[2024-01-08 08:32] LABS: POTASSIUM 4.5 mmol/L (3.5-5.1)
[2024-01-08 08:38] LABS: CALCIUM 7.9 mg/dL (8.5-10.1)
[2024-01-08 08:39] LABS: ALBUMIN 2.4 g/dl (3.4-5.0); BLOOD UREA NITROGEN 24.3 mg/dL (7-18)
[2024-01-08 08:42] LABS: BILIRUBIN,TOTAL 0.4 mg/dL (0.2-1); CREATININE 0.8 mg/dL (0.55-1.3)
[2024-01-08 08:43] LABS: TOT PROT 5.2 g/dl (6.4-8.2)
[2024-01-08] MEDS: HEPARIN NA (PORCINE) 5,000 UNITS/ML 1ML VIAL SQ SCH (09:46)
[2024-01-08] MEDS: MULTIVITAMINS (DAILY MVI) TABLET (FP) PO SCH (09:46)
[2024-01-08] MEDS: ASPIRIN 81 MG CHEWABLE TABLETS PO SCH (09:46)
[2024-01-08 09:50] LABS: ANISOCYTOSIS 2+; MACROCYTOSIS 0
[2024-01-08] MEDS ORDERED: VANCOMYCIN 750 MG in DEXTROSE 5%-WATER - 150 ML IVPB SCH (21:00)
[2024-01-08] MEDS: VANCOMYCIN/WATER FOR INJ (PEG) 750 MG/150 ML BAG IVPB SCH (21:22)
[2024-01-09 06:50] LABS: HEMATOCRIT 19.1 % (35.4-49); MCH 31.3 pg (25.7-33.7); MCHC 33.2 g/dl (32.0-35.9); MEAN CELL VOLUME 94.4 fl (80-96); MEAN PLT VOLUME 6.8 fl (7.5-11.1); PLATELET COUNT 484 10^3/uL (134-434); RBC 2.03 M/mm3 (4.00-5.60); RDW 13.7 % (11.9-15.9); WHITE BLOOD COUNT 12.5 K/mm3 (4.0-10.0)
[2024-01-09 06:55] LABS: HEMOGLOBIN 6.3 GM/dL (11.7-16.9)
[2024-01-09 07:15] LABS: POTASSIUM 4.4 mmol/L (3.5-5.1)
[2024-01-09 07:19] LABS: CALCIUM 7.6 mg/dL (8.5-10.1)
[2024-01-09 07:20] LABS: ALBUMIN 2.1 g/dl (3.4-5.0); BLOOD UREA NITROGEN 20.8 mg/dL (7-18)
[2024-01-09 07:22] LABS: CREATININE 0.6 mg/dL (0.55-1.3)
[2024-01-09 07:24] LABS: TOT PROT 4.3 g/dl (6.4-8.2)
[2024-01-09 07:25] LABS: BILIRUBIN,TOTAL 0.4 mg/dL (0.2-1)
[2024-01-09 08:43] LABS: ANISOCYTOSIS 0; HELMET CELLS 0; HOWELL-JOLLY BODIES 0; MACROCYTOSIS 0; OVALOCYTE 0; ROULEAU 0; SICKELED CELLS 0; TARGET CELLS 0; TEAR DROP CELLS 0; TOXIC GRANULATION 0
[2024-01-09] MEDS: PIPERACILLIN/TAZOB 2.25 GM 2.25 GM in DEXTROSE 5%-WATER - 50 ML IVPB SCH (10:36)
[2024-01-09] MEDS ORDERED: VANCOMYCIN/WATER FOR INJ (PEG) 750 MG/150 ML BAG IVPB SCH (21:00)
[2024-01-10 09:23] LABS: BASO % 0.2 % (0-2.0); EOS % 1.6 % (0-4.5); HEMOGLOBIN 8.1 GM/dL (11.7-16.9); LYMPH % 9.5 % (8-40); MCH 30.7 pg (25.7-33.7); MCHC 33.8 g/dl (32.0-35.9); MEAN CELL VOLUME 91.1 fl (80-96); MEAN PLT VOLUME 6.7 fl (7.5-11.1); MONO % 6.9 % (3.8-10.2); NEUT % 81.8 % (42.8-82.8); PLATELET COUNT 412 10^3/uL (134-434); RBC 2.64 M/mm3 (4.00-5.60); RDW 14.9 % (11.9-15.9); WHITE BLOOD COUNT 9.1 K/mm3 (4.0-10.0)
[2024-01-10 09:44] LABS: POTASSIUM 4.2 mmol/L (3.5-5.1)
[2024-01-10 09:58] LABS: CALCIUM 7.4 mg/dL (8.5-10.1)
[2024-01-10 09:59] LABS: ALBUMIN 2.1 g/dl (3.4-5.0); BLOOD UREA NITROGEN 11.8 mg/dL (7-18)
[2024-01-10 10:02] LABS: CREATININE 0.5 mg/dL (0.55-1.3)
[2024-01-10 10:03] LABS: BILIRUBIN,TOTAL 0.7 mg/dL (0.2-1)
[2024-01-10 10:04] LABS: TOT PROT 4.3 g/dl (6.4-8.2)
[2024-01-10] MEDS: ALBUTEROL SO4 0.083% IH SOL 2.5 MG/3 ML VIAL.NEB. NEB PRN (16:53)
[2024-01-11 07:25] LABS: POTASSIUM 3.8 mmol/L (3.5-5.1)
[2024-01-11 07:26] LABS: BASO % 0.3 % (0-2.0); EOS % 0.9 % (0-4.5); HEMATOCRIT 22.3 % (35.4-49); HEMOGLOBIN 7.6 GM/dL (11.7-16.9); LYMPH % 8.4 % (8-40); MCH 30.9 pg (25.7-33.7); MEAN CELL VOLUME 90.9 fl (80-96); MEAN PLT VOLUME 6.8 fl (7.5-11.1); MONO % 8.1 % (3.8-10.2); NEUT % 82.3 % (42.8-82.8); PLATELET COUNT 377 10^3/uL (134-434); RBC 2.45 M/mm3 (4.00-5.60); RDW 15.2 % (11.9-15.9); WHITE BLOOD COUNT 7.8 K/mm3 (4.0-10.0)
[2024-01-11 07:30] LABS: CALCIUM 7.6 mg/dL (8.5-10.1)
[2024-01-11 07:31] LABS: ALBUMIN 2.1 g/dl (3.4-5.0); BLOOD UREA NITROGEN 8.4 mg/dL (7-18)
[2024-01-11 07:34] LABS: CREATININE 0.5 mg/dL (0.55-1.3)
[2024-01-11 07:35] LABS: BILIRUBIN,TOTAL 0.5 mg/dL (0.2-1); TOT PROT 4.4 g/dl (6.4-8.2)
[2024-01-11] MEDS: FUROSEMIDE 40 MG/4 ML INJECTABLE VIAL IVPUSH ONE (10:07)
[2024-01-11] MEDS: DEXTROSE 5%-0.45% SALINE 1,000 ML IV SCH (11:57)
[2024-01-11] MEDS: PANTOPRAZOLE 40 MG TABLET PO SCH (19:48)
[2024-01-11] MEDS: MIRTAZAPINE 15 MG TABLET (FP) PO SCH (21:30)
[2024-01-12 12:01] LABS: BASO % 1.2 % (0-2.0); EOS % 2.8 % (0-4.5); HEMATOCRIT 36.9 % (35.4-49); HEMOGLOBIN 12.6 GM/dL (11.7-16.9); LYMPH % 13.1 % (8-40); MCH 30.1 pg (25.7-33.7); MCHC 34.1 g/dl (32.0-35.9); MEAN CELL VOLUME 88.3 fl (80-96); MEAN PLT VOLUME 6.7 fl (7.5-11.1); MONO % 10.6 % (3.8-10.2); NEUT % 72.3 % (42.8-82.8); PLATELET COUNT 354 10^3/uL (134-434); RBC 4.18 M/mm3 (4.00-5.60); RDW 15.2 % (11.9-15.9); WHITE BLOOD COUNT 8.2 K/mm3 (4.0-10.0)
[2024-01-12 12:35] LABS: POTASSIUM 3.9 mmol/L (3.5-5.1)
[2024-01-12 12:37] LABS: CALCIUM 8.2 mg/dL (8.5-10.1)
[2024-01-12 12:38] LABS: ALBUMIN 2.4 g/dl (3.4-5.0)
[2024-01-12 12:41] LABS: CREATININE 0.6 mg/dL (0.55-1.3)
[2024-01-12 12:43] LABS: BILIRUBIN,TOTAL 1.1 mg/dL (0.2-1); TOT PROT 5.4 g/dl (6.4-8.2)
[2024-01-13 06:47] VITALS: BP 141/80; PULSE 55; RESP 17; TEMP 97.9
== END 2024-01-13 11:33 | DRG 871 ==
LOC: JER 18:18 → JERBED 01-08 00:46 → UNDOADMIN 01-08 00:46 → JERBED 01-08 01:29 → J4W 01-08 02:17
PROVIDERS: ADMIT Internal Medicine; ATTEND Family Medicine
DX: A41.89 Other specified sepsis (principal); G92.8 Other toxic encephalopathy; I24.89 Other forms of acute ischemic heart disease; I10 Essential (primary) hypertension; F03.90 Unspecified dementia, unspecified severity, without behavioral disturbance, psychotic disturbance, mood disturbance, and anxiety; T42.4X5A Adverse effect of benzodiazepines, initial encounter; E78.5 Hyperlipidemia, unspecified; R55 Syncope and collapse; J44.9 Chronic obstructive pulmonary disease, unspecified; G20.A1 Parkinson's disease without dyskinesia, without mention of fluctuations; D72.829 Elevated white blood cell count, unspecified; M25.512 Pain in left shoulder; M25.511 Pain in right shoulder; R09.02 Hypoxemia; R79.89 Other specified abnormal findings of blood chemistry; K76.89 Other specified diseases of liver; D64.9 Anemia, unspecified; Z86.718 Personal history of other venous thrombosis and embolism; Z99.81 Dependence on supplemental oxygen; Z96.653 Presence of artificial knee joint, bilateral; Y92.9 Unspecified place or not applicable
CPT/HCPCS: 36415; 36430; 70450-TC; 71045-TC-FY; 71275-TC; 74174-TC; 80053; 80061; 81003; 82533; 82728; 82803; 82962; 83540; 83550; 83605; 83690; 84443; 84484; 85025; 85610; 85730; 86850; 86900; 86901; 86922; 87040; 87086; 93005; 93010; 93306-TC; 94640; 99285-25; J1644; P9038; P9058; Q9967

== ENCOUNTER 2024-01-31 19:45 | Emergency (ER) | payer OTHER ==
[2024-01-31 20:01] VITALS: BMI 22.4
[2024-01-31 21:11] LABS: EPI CELLS 20 /uL (0-25.1); HYALINE CASTS 1 /uL (0-3.1); PH,URINE 5.5 (5.0-8.0); URINE APPEARANCE CLEAR; URINE BACTERIA 16 /uL (0-1359); URINE BILIRUBIN NEGATIVE (NEGATIVE); URINE COLOR YELLOW; URINE GLUCOSE (UA) NEGATIVE (NEGATIVE); URINE KETONE TRACE (NEGATIVE); URINE LEUK ESTERASE TRACE (NEGATIVE); URINE NITRITE NEGATIVE (NEGATIVE); URINE PROTEIN TRACE (NEGATIVE); URINE RBC 684 /uL (0-23.9); URINE WBC 27 /uL (0-25.8)
[2024-01-31 21:30] LABS: BASO % 1.2 % (0-2.0); EOS % 1.9 % (0-4.5); HEMATOCRIT 38.7 % (35.4-49); HEMOGLOBIN 12.6 GM/dL (11.7-16.9); LYMPH % 30.1 % (8-40); MCH 28.9 pg (25.7-33.7); MCHC 32.6 g/dl (32.0-35.9); MEAN CELL VOLUME 88.8 fl (80-96); MEAN PLT VOLUME 6.7 fl (7.5-11.1); MONO % 7.8 % (3.8-10.2); PLATELET COUNT 480 10^3/uL (134-434); RBC 4.35 M/mm3 (4.00-5.60); WHITE BLOOD COUNT 8.9 K/mm3 (4.0-10.0)
[2024-01-31 21:35] LABS: INR 0.99 (0.83-1.09); PROTHROMBIN TIME (PATIENT) 11.4 SEC (9.7-13.0)
[2024-01-31 21:38] LABS: ACTIVATED PTT 34.6 SECONDS (25.2-36.5)
[2024-01-31 21:50] LABS: POTASSIUM 4.1 mmol/L (3.5-5.1)
[2024-01-31 21:52] LABS: ALBUMIN 2.6 g/dl (3.4-5.0); CALCIUM 8.2 mg/dL (8.5-10.1)
[2024-01-31 21:53] LABS: BLOOD UREA NITROGEN 13.4 mg/dL (7-18)
[2024-01-31 21:56] LABS: CREATININE 0.5 mg/dL (0.55-1.3)
[2024-01-31 21:57] LABS: BILIRUBIN,TOTAL 0.4 mg/dL (0.2-1); TOT PROT 6.1 g/dl (6.4-8.2)
[2024-02-01 03:57] VITALS: BP 103/46; PULSE 53; RESP 16; TEMP 98
== END 2024-02-01 05:06 | disposition home or self-care (01) ==
LOC: JER 19:45
DX: R10.13 Epigastric pain (principal); R63.8 Other symptoms and signs concerning food and fluid intake; K59.00 Constipation, unspecified
CPT/HCPCS: 36415; 71045-TC-FY; 71260-TC; 74177-TC; 80053; 81003; 83605; 84484; 85025; 85610; 85730; 86850; 86900; 86901; 87086; 93005; 93010; 99285-25; Q9967